=== PATIENT | male | born 1985 | race Caucasian/White ===

== ENCOUNTER 2024-07-10 18:59 | Inpatient (IN) | payer OTHER ==
[2024-07-10 19:31] VITALS: BMI 25.6
[2024-07-10] MEDS ORDERED: POLYETHYLENE GLYCOL (HEALTHYLAX) 3350 17 GM PACKET PO PRN (19:47)
[2024-07-10] MEDS ORDERED: MAGNESIUM HYDROX 2400MG/30ML ORAL SUSPENSION 30 ML CUP PO PRN (19:47)
[2024-07-10] MEDS ORDERED: LOPERAMIDE HCL 2 MG CAPSULE PO PRN (19:47)
[2024-07-10] MEDS ORDERED: BISMUTH SUBSALICYLATE 524 MG/30 ML PO PRN (19:47)
[2024-07-10] MEDS ORDERED: DICYCLOMINE HCL 10 MG CAPSULE PO PRN (19:47)
[2024-07-10] MEDS ORDERED: NICOTINE POLACRILEX 4 MG GUM BUC PRN (19:47)
[2024-07-10] MEDS ORDERED: MAG HYDROX/AL HYDROX/SIMETH 30 ML UNIT-DOSE CUP PO PRN (19:47)
[2024-07-10] MEDS ORDERED: BENZONATATE 200 MG CAPSULE PO PRN (19:47)
[2024-07-10] MEDS ORDERED: ONDANSETRON *ODT* 4 MG TABLET SL PRN (19:47)
[2024-07-10] MEDS ORDERED: ACETAMINOPHEN 325 MG TABLET (FP) PO PRN (19:47)
[2024-07-10] MEDS ORDERED: NALOXONE (NARCAN) HCL 4 MG/0.1 ML SPRAY NS PRN (19:47)
[2024-07-10] MEDS ORDERED: BENZOCAINE/MENTHOL (CHLORASEPTIC ) LOZENGE MM PRN (19:47)
[2024-07-10] MEDS ORDERED: IBUPROFEN 400 MG TABLET (FP) PO PRN (19:47)
[2024-07-10] MEDS ORDERED: NALOXONE HCL 0.4 MG/ML VIAL IM PRN (19:47)
[2024-07-10] MEDS ORDERED: guaiFENesin 600 MG TABLET.ER (FP) PO PRN (19:47)
[2024-07-10] MEDS: BACITRACIN 0.9 GM PACKET TP SCH (20:17)
[2024-07-10] MEDS ORDERED: IBUPROFEN 600 MG TABLET (FP) PO ONE (20:41)
[2024-07-10] MEDS: IBUPROFEN 600 MG TABLET (FP) PO PRN (20:59)
[2024-07-10] MEDS: MELATONIN 5 MG TABLETS PO SCH (22:54)
[2024-07-10] MEDS: THIAMINE 100 MG TABLET PO SCH (22:54)
[2024-07-10] MEDS: METHOCARBAMOL 500 MG TABLET PO PRN (22:54)
[2024-07-10] MEDS: CEPHALEXIN MONOHYDRATE 500 MG CAPSULE (UD) PO SCH (23:10)
[2024-07-11] MEDS ORDERED: cloNIDine HCL 0.1 MG TABLET PO PRN (09:11)
[2024-07-11] MEDS ORDERED: DOXYCYCLINE HYCLATE 100 MG CAPSULE PO SCH (10:00)
[2024-07-11 10:19] LABS: HEMATOCRIT 33.9 % (35.4-49); HEMOGLOBIN 11.3 GM/dL (11.7-16.9); MCHC 33.4 g/dl (32.0-35.9); MEAN PLT VOLUME 8.1 fl (7.5-11.1); PLATELET COUNT 292 10^3/uL (134-434); RBC 4.04 M/mm3 (4.00-5.60); RDW 14.1 % (11.9-15.9); WHITE BLOOD COUNT 4.8 K/mm3 (4.0-10.0)
[2024-07-11] MEDS: DOXYCYCLINE HYCLATE 100 MG TABLET PO SCH (10:24)
[2024-07-11] MEDS: PRENATAL VITAMINS W/ FOLIC ACID TABLET (FP) PO SCH (10:24)
[2024-07-11] MEDS: methaDONE HCL 10 MG TABLET (FOR DETOX USE ONLY) PO ONE (10:25)
[2024-07-11] MEDS: NICOTINE 14 MG/24 HOURS TOPICAL PATCH TD SCH (10:25)
[2024-07-11 10:28] LABS: CHLORIDE 102 mmol/L (98-107); POTASSIUM 4.1 mmol/L (3.5-5.1); SODIUM 136 mmol/L (136-145)
[2024-07-11 10:43] LABS: ALBUMIN 2.8 g/dl (3.4-5.0)
[2024-07-11 10:44] LABS: ANION GAP 6 mmol/L (4-13); BLOOD UREA NITROGEN 18.1 mg/dL (7-18); CALCIUM 8.8 mg/dL (8.5-10.1); CO2 28 mmol/L (21-32)
[2024-07-11 10:45] LABS: GLUCOSE,RANDOM 98 mg/dL (74-106)
[2024-07-11 10:46] LABS: BILIRUBIN,TOTAL 0.2 mg/dL (0.2-1); SGOT/AST 10 U/L (15-37); SGPT/ALT 7 U/L (13-61); TOT PROT 7.4 g/dl (6.4-8.2)
[2024-07-11 10:47] LABS: ALK PHOS 93 U/L (45-117); CREATININE 0.9 mg/dL (0.55-1.3)
[2024-07-11] MEDS: SUVOREXANT 10 MG TABLET PO PRN (22:16)
[2024-07-12] MEDS: diazePAM 5 MG TABLET PO PRN (05:45)
[2024-07-12] MEDS: PENICILLIN G BENZATHINE 2,400,000 UNIT/4 ML PFS IM ONE (14:00)
[2024-07-13] MEDS: methaDONE HCL 10 MG TABLET (FOR DETOX USE ONLY) PO ONE (09:18)
[2024-07-13] MEDS: SILVER SULFADIAZINE 1% TOP CREAM 50 GM JAR TP SCH (14:05)
[2024-07-14] MEDS: hydrOXYzine PAMOATE 25 MG CAPSULE (FP) PO PRN (09:21)
[2024-07-15 08:53] VITALS: RESP 16
[2024-07-15] MEDS: methaDONE HCL 10 MG TABLET (FOR DETOX USE ONLY) PO ONE (09:35)
[2024-07-15 12:50] VITALS: BP 104/62; PULSE 72; TEMP 98.9
[2024-07-15] MEDS ORDERED: ALBUTEROL SO4 HFA INHALER IH PRN (13:16)
== END 2024-07-15 15:59 | disposition home or self-care (01) | DRG 773 ==
LOC: YASAS 18:59 → Y6N 20:23
PROVIDERS: ADMIT Allergy & Immunology; ATTEND Surgery
PROC: HZ2ZZZZ Detoxification Services for Substance Abuse Treatment (ICD-10-PCS; principal; 2024-07-10)
DX: F11.23 Opioid dependence with withdrawal (principal); F14.20 Cocaine dependence, uncomplicated; F17.210 Nicotine dependence, cigarettes, uncomplicated; F19.282 Other psychoactive substance dependence with psychoactive substance-induced sleep disorder; G47.00 Insomnia, unspecified; J45.20 Mild intermittent asthma, uncomplicated; L03.115 Cellulitis of right lower limb; M54.50 Low back pain, unspecified; G89.29 Other chronic pain; Z59.00 Homelessness unspecified
CPT/HCPCS: 36415; 80053; 80305; 80307; 85027; 86593; 86780; 93005; 93010

== ENCOUNTER 2024-08-09 18:20 | Inpatient (IN) | payer OTHER ==
[2024-08-09 19:44] VITALS: BMI 25.6
[2024-08-09] MEDS ORDERED: ONDANSETRON *ODT* 4 MG TABLET SL PRN (20:13)
[2024-08-09] MEDS ORDERED: P-EPHED 60MG/TRIPROLIDI 2.5MG TABLET PO PRN (20:13)
[2024-08-09] MEDS ORDERED: POLYETHYLENE GLYCOL (HEALTHYLAX) 3350 17 GM PACKET PO PRN (20:13)
[2024-08-09] MEDS ORDERED: BENZOCAINE/MENTHOL (CHLORASEPTIC ) LOZENGE MM PRN (20:13)
[2024-08-09] MEDS ORDERED: BENZONATATE 200 MG CAPSULE PO PRN (20:13)
[2024-08-09] MEDS ORDERED: LOPERAMIDE HCL 2 MG CAPSULE PO PRN (20:13)
[2024-08-09] MEDS ORDERED: IBUPROFEN 400 MG TABLET (FP) PO PRN (20:13)
[2024-08-09] MEDS ORDERED: guaiFENesin 600 MG TABLET.ER (FP) PO PRN (20:13)
[2024-08-09] MEDS ORDERED: BISMUTH SUBSALICYLATE 524 MG/30 ML PO PRN (20:13)
[2024-08-09] MEDS ORDERED: ALBUTEROL SO4 HFA INHALER IH PRN (20:13)
[2024-08-09] MEDS ORDERED: NICOTINE POLACRILEX 2 MG LOZENGE BC PRN (20:13)
[2024-08-09] MEDS ORDERED: NALOXONE (NARCAN) HCL 4 MG/0.1 ML SPRAY NS PRN (20:13)
[2024-08-09] MEDS ORDERED: NALOXONE HCL 0.4 MG/ML VIAL IM PRN (20:13)
[2024-08-09] MEDS ORDERED: ACETAMINOPHEN 325 MG TABLET (FP) PO PRN (20:13)
[2024-08-09] MEDS ORDERED: MAG HYDROX/AL HYDROX/SIMETH 30 ML UNIT-DOSE CUP PO PRN (20:13)
[2024-08-09] MEDS ORDERED: NICOTINE POLACRILEX 2 MG GUM BUC PRN (20:13)
[2024-08-09] MEDS ORDERED: MAGNESIUM HYDROX 2400MG/30ML ORAL SUSPENSION 30 ML CUP PO PRN (20:13)
[2024-08-10] MEDS: MELATONIN 5 MG TABLETS PO SCH (01:42)
[2024-08-10] MEDS: CEPHALEXIN MONOHYDRATE 500 MG CAPSULE (UD) PO SCH (01:42)
[2024-08-10] MEDS: THIAMINE 100 MG TABLET PO SCH (01:43)
[2024-08-10] MEDS ORDERED: PRENATAL VITAMINS W/ FOLIC ACID TABLET (FP) PO ONE (09:36)
[2024-08-10] MEDS: NICOTINE 14 MG/24 HOURS TOPICAL PATCH TD SCH (09:39)
[2024-08-10] MEDS: DOXYCYCLINE HYCLATE 100 MG TABLET PO SCH (09:40)
[2024-08-10] MEDS: PRENATAL VITAMINS W/ FOLIC ACID TABLET (FP) PO SCH (09:40)
[2024-08-10] MEDS: DOXYCYCLINE HYCLATE 100 MG CAPSULE PO SCH (09:47)
[2024-08-10] MEDS: methaDONE HCL 10 MG TABLET PO ONE (12:19)
[2024-08-10] MEDS: IBUPROFEN 600 MG TABLET (FP) PO PRN (17:23)
[2024-08-10] MEDS: METHOCARBAMOL 500 MG TABLET PO PRN (22:37)
[2024-08-11] MEDS: hydrOXYzine PAMOATE 25 MG CAPSULE (FP) PO PRN (09:20)
[2024-08-11] MEDS: diazePAM 5 MG TABLET PO PRN (22:26)
[2024-08-11] MEDS: cloNIDine HCL 0.1 MG TABLET PO PRN (22:26)
[2024-08-11] MEDS: DICYCLOMINE HCL 10 MG CAPSULE PO PRN (22:28)
[2024-08-12] MEDS: methaDONE HCL 10 MG TABLET (FOR DETOX USE ONLY) PO ONE (09:58)
[2024-08-14] MEDS: methaDONE HCL 10 MG TABLET (FOR DETOX USE ONLY) PO ONE (09:04)
[2024-08-15 20:58] VITALS: RESP 16
[2024-08-16 08:38] VITALS: BP 110/73; PULSE 60; TEMP 97.8
== END 2024-08-16 10:02 | disposition home or self-care (01) | DRG 773 ==
LOC: YASAS 18:20 → Y6N 08-10 11:41
PROVIDERS: ADMIT Allergy & Immunology; ATTEND Surgery
PROC: HZ2ZZZZ Detoxification Services for Substance Abuse Treatment (ICD-10-PCS; principal; 2024-08-10)
DX: F11.23 Opioid dependence with withdrawal (principal); F14.20 Cocaine dependence, uncomplicated; F15.20 Other stimulant dependence, uncomplicated; F17.210 Nicotine dependence, cigarettes, uncomplicated; J45.20 Mild intermittent asthma, uncomplicated; L03.115 Cellulitis of right lower limb; M54.50 Low back pain, unspecified; G89.29 Other chronic pain; Z86.19 Personal history of other infectious and parasitic diseases; Z56.0 Unemployment, unspecified; Z59.02 Unsheltered homelessness
CPT/HCPCS: 36415; 80305; 80307; 86593; 86780